=== PATIENT | female | born 1955 | race Caucasian/White ===

== ENCOUNTER 2018-12-09 12:06 | Emergency (ER) | payer OTHER ==
[~2018-12-09] VITALS: Ht 165.1 cm; Wt 95.2 kg
[2018-12-09 12:45] LABS: Source, Urine Clean Catch
[2018-12-09 12:52] LABS: BASOPHILS ABSOLUTE AUTO 0.05 K/mm3 (0.00-0.23); BASOPHILS PERCENT AUTO 1 % (0-2); EOSINOPHILS ABSOLUTE AUTO 0.28 K/mm3 (0.00-0.68); EOSINOPHILS PERCENT AUTO 3 % (0-6); Hematocrit 38.1 % (33.0-51.0); Hemoglobin 11.6 g/dL (11.5-16.0); IMMATURE GRAN ABSOLUTE AUTO 0.02 K/mm3 (0.00-0.10); IMMATURE GRAN PERCENT AUTO 0 % (0-1); LYMPHOCYTES ABSOLUTE AUTO 1.57 K/mm3 (0.84-5.20); LYMPHOCYTES PERCENT AUTO 19 % (21-46); MONOCYTES PERCENT AUTO 6 % (4-13); Mean Corpuscular HGB 26.7 pg (26.0-34.0); Mean Corpuscular HGB Conc 30.4 g/dL (31.5-36.5); Mean Corpuscular Volume 88 fL (80-100); Mean Platelet Volume 8.9 fL (9.1-12.4); NEUTROPHILS ABSOLUTE AUTO 5.97 K/mm3 (1.96-9.15); NEUTROPHILS PERCENT AUTO 71 % (41-73); Platelet Count 288 K/mm3 (150-400); RDW Coefficient Variation 14.3 % (11.7-14.2); RDW Standard Deviation 46.2 fL (35.1-46.3); Red Blood Cell Count 4.35 M/mm3 (3.80-5.20); White Blood Cell Count 8.39 K/mm3 (4.00-11.30)
[2018-12-09 12:59] LABS: Blood, Urine Neg (Neg); Glucose Qualitative, Urine Neg (Neg); Ketones, Urine 1+ (Neg); Leukocyte Esterase, Urine 1+ (Neg); Nitrite, Urine Neg (Neg); Protein, Urine 1+ (Neg); Specific Gravity, Urine 1.025 (1.003-1.022); Urobilinogen, Urine NORM (Normal)
[2018-12-09 13:18] LABS: Appearance, Urine Hazy (Clear); Bilirubin, Urine 1+ (Neg); Color, Urine Yellow (P-Yellow)
[2018-12-09 13:20] LABS: Troponin I <0.015 ng/mL (0.000-0.040)
[2018-12-09 13:21] LABS: Alanine Aminotransfer (ALT/SGP 22 U/L (12-78); Albumin, Blood 3.2 g/dL (3.4-5.0); Albumin/Globulin Ratio 0.7 (0.8-1.8); Alk Phos 177 U/L (50-136); Anion Gap 3 mmol/L (6-16); Aspartate Aminotrans (AST/SGOT 22 U/L (12-37); Bilirubin, Total 0.4 mg/dL (0.1-1.0); Blood Urea Nitrogen 13 mg/dL (8-24); Bun/Creatinine Ratio 16.4 (12.0-20.0); CO2, Blood 29 mmol/L (21-32); Calcium, Blood 9.3 mg/dL (8.5-10.1); Chloride, Blood 108 mmol/L (98-108); Creatinine, Blood 0.79 mg/dL (0.40-1.00); Globulin, Blood 4.4 g/dL (2.2-4.0); Glomerular Filtration Rate >60 (60-); Glucose, Blood 90 mg/dL (70-99); Potassium, Blood 3.9 mmol/L (3.5-5.5); Sodium, Blood 140 mmol/L (136-145); Total Protein, Blood 7.6 g/dL (6.4-8.2)
[2018-12-09 13:24] LABS: Red Blood Cells, Urine 0-2 /hpf (0-2)
[2018-12-09 13:25] LABS: Bacteria Few /hpf; Calcium Oxalate Crystals Many /hpf; Mucus Light (0-Heavy); Squamous Epithelial Cells Rare /hpf (Few)
[2018-12-09] MEDS ORDERED: ONDA4ODT MM (14:32)
[2018-12-09] MEDS ORDERED: ALBU90OI61 INH (14:32)
[2018-12-09] MEDS ORDERED: Zithromax250 MG PO (14:32)
[2018-12-10] MEDS ORDERED: CONEST.625 (10:29)
[2018-12-10] MEDS ORDERED: TRELEGY ELLIPT1 EACH (10:29)
[2018-12-10] MEDS ORDERED: PREG75 PO (10:30)
[2018-12-10] MEDS ORDERED: Celexa40 MG PO (10:30)
[2018-12-10] MEDS ORDERED: ALBU90OI INH (11:28)
[2018-12-10] MEDS ORDERED: ONDA4ODT MM (11:28)
[2018-12-10] MEDS ORDERED: Zithromax250 MG PO (11:28)
== END 2018-12-09 14:44 | disposition home or self-care (01) ==
LOC: ER 12:06
PROVIDERS: Physician Assistant
DX: J20.9 Acute bronchitis, unspecified (principal); Z88.5 Allergy status to narcotic agent; Z88.8 Allergy status to other drugs, medicaments and biological substances
CPT/HCPCS: 71046; 80053; 81001; 83690; 84484; 85025; 87086; 99283-25

== ENCOUNTER 2018-12-10 08:40 | Emergency (ER) | payer OTHER ==
[~2018-12-10] VITALS: Ht 165.1 cm; Wt 95.2 kg
[~2018-12-10 08:40] MED LIST: ALBU90OI61 INH; ONDA4ODT MM; Zithromax250 MG PO
[2018-12-10] MEDS ORDERED: CONEST.625 (10:29)
[2018-12-10] MEDS ORDERED: TRELEGY ELLIPT1 EACH (10:29)
[2018-12-10] MEDS ORDERED: Celexa40 MG PO (10:30)
[2018-12-10] MEDS ORDERED: PREG75 PO (10:30)
[2018-12-10] MEDS ORDERED: Zithromax250 MG PO (11:28)
[2018-12-10] MEDS ORDERED: ALBU90OI INH (11:28)
[2018-12-10] MEDS ORDERED: ONDA4ODT MM (11:28)
== END 2018-12-10 11:41 | disposition home or self-care (01) ==
LOC: ER 08:40
DX: J40 Bronchitis, not specified as acute or chronic (principal); Z76.0 Encounter for issue of repeat prescription; Z88.8 Allergy status to other drugs, medicaments and biological substances; Z88.5 Allergy status to narcotic agent; Z79.899 Other long term (current) drug therapy
CPT/HCPCS: 99281